=== PATIENT | female | born 1940 | race Caucasian/White ===

== ENCOUNTER 2022-01-13 16:36 | Emergency (ER) | payer MEDICARE | END 2022-01-13 20:26 | disposition home or self-care (01) | LOC: JD.ED 16:36 | DX: K42.9 Umbilical hernia without obstruction or gangrene (principal); E78.00 Pure hypercholesterolemia, unspecified; I10 Essential (primary) hypertension; Z79.899 Other long term (current) drug therapy | CPT/HCPCS: 76705; 76705-26; 99283 ==